=== PATIENT | male | born 1960 | race Caucasian/White ===

== ENCOUNTER 2021-01-17 23:02 | Emergency (ER) | payer MEDICAID ==
[~2021-01-17] VITALS: Ht 172.7 cm; Wt 70.5 kg
[2021-01-18] MEDS ORDERED: FLUCONAZOLE 150 MG TABLET PO ONE (01:00)
[2021-01-18] MEDS ORDERED: KETOCONAZOLE 2% 120 ML SHAMPOO TP ONE (01:00)
[2021-01-18] MEDS ORDERED: DiphenhydrAMINE HCL 25 MG CAPSULE PO ONE (03:30)
[2021-01-18 07:00] VITALS: BP 125/87
== END 2021-01-18 07:25 | disposition home or self-care (01) ==
LOC: EMS 23:04
DX: B35.4 Tinea corporis (principal); F15.10 Other stimulant abuse, uncomplicated; F17.200 Nicotine dependence, unspecified, uncomplicated
CPT/HCPCS: 99284; Z7502; Z7610